=== PATIENT | female | born 1985 | race African-American/Black ===

== ENCOUNTER 2016-07-19 20:17 | Emergency (ER) | payer OTHER ==
[~2016-07-19] VITALS: Ht 160 cm; Wt 92.0 kg
[~2016-07-19 20:17] MED LIST: DOCU-119 PO; NOCURR; VICOT
[2016-07-19 20:40] VITALS: BP 132/86
[2016-07-19] MEDS: KETOROLAC TROMETHAMINE 60 MG/2 ML VIAL IM ONE (21:07)
[2016-07-19] MEDS: METHOCARBAMOL 500 MG TABLET PO ONE (21:07)
== END 2016-07-19 21:20 | disposition home or self-care (01) ==
LOC: EMS 20:19
DX: M62.838 Other muscle spasm (principal); F12.90 Cannabis use, unspecified, uncomplicated
CPT/HCPCS: 96372; 99283; J1885

== ENCOUNTER 2016-09-17 12:40 | Emergency (ER) | payer OTHER ==
[~2016-09-17] VITALS: Ht 160 cm; Wt 92.3 kg
[~2016-09-17 12:40] MED LIST changes: -DOCU-119 PO; -VICOT
[2016-09-17 14:06] VITALS: BP 120/70
== END 2016-09-17 14:08 | disposition home or self-care (01) ==
LOC: EMS 12:42
DX: J02.8 Acute pharyngitis due to other specified organisms (principal); B97.89 Other viral agents as the cause of diseases classified elsewhere; F17.210 Nicotine dependence, cigarettes, uncomplicated; F12.90 Cannabis use, unspecified, uncomplicated
CPT/HCPCS: 87430; 99283

== ENCOUNTER 2017-12-22 00:31 | Emergency (ER) | payer OTHER ==
[~2017-12-22] VITALS: Ht 160 cm; Wt 113.6 kg
[2017-12-22 05:40] VITALS: BP 105/64
== END 2017-12-22 06:02 | disposition home or self-care (01) ==
LOC: EMS 00:32
DX: R07.89 Other chest pain (principal); F17.210 Nicotine dependence, cigarettes, uncomplicated; F12.90 Cannabis use, unspecified, uncomplicated
CPT/HCPCS: 93005; 99406

== ENCOUNTER 2018-08-01 13:14 | Emergency (ER) | payer OTHER ==
[~2018-08-01] VITALS: Ht 160 cm; Wt 116.4 kg
[2018-08-01] MEDS ORDERED: METHOCARBAMOL 500 MG TABLET PO ONE (14:30)
[2018-08-01] MEDS ORDERED: LIDOCAINE 5% TRANSDERMAL PATCH TD ONE (14:30)
[2018-08-01 16:22] VITALS: BP 126/77
== END 2018-08-01 16:33 | disposition home or self-care (01) ==
LOC: EMS 13:15
DX: M54.6 Pain in thoracic spine (principal); F17.210 Nicotine dependence, cigarettes, uncomplicated; F12.90 Cannabis use, unspecified, uncomplicated
CPT/HCPCS: 72072

== ENCOUNTER 2018-10-08 12:40 | Emergency (ER) | payer OTHER ==
[~2018-10-08] VITALS: Ht 160 cm; Wt 120.5 kg
[2018-10-08 14:58] LABS: BASOPHILS % (AUTO) 0.9 % (0.0-2.0); EOSINOPHILS % (AUTO) 3.1 % (1.0-6.0); HEMATOCRIT 41.8 % (36-46); HEMOGLOBIN 13.3 g/dL (12.0-16.0); LYMPHOCYTES # (AUTO) 2.6 K/uL (1.0-4.8); LYMPHOCYTES % (AUTO) 29.9 % (22.0-44.0); MEAN CORPUSCULAR HEMOGLOBIN 28.1 pg (26.0-34.0); MEAN CORPUSCULAR HGB CONC 31.8 G/dL (31.0-37.0); MEAN CORPUSCULAR VOLUME 89 fL (80-100); MONOCYTES # (AUTO) 0.3 K/uL (0.1-1.0); MONOCYTES % (AUTO) 3.8 % (2.0-9.0); NEUTROPHILS # (AUTO) 5.3 K/uL (1.8-7.7); NEUTROPHILS % (AUTO) 62.3 % (40.0-70.0); PLATELET COUNT (AUTO) 271 K/uL (150-450); RED BLOOD CELL COUNT(AUTO) 4.72 MIL/uL (4.00-5.20); RED CELL DISTRIBUTION WIDTH 15.3 % (11.5-14.5)
[2018-10-08 15:03] LABS: APPEARANCE,URINE CLOUDY (CLEAR); BILIRUBIN,URINE NEGATIVE (NEGATIVE); GLUCOSE, URINE (UA) NEGATIVE (NEGATIVE); KETONES,URINE NEGATIVE (NEGATIVE); LEUKOCYTE ESTERASE ,URINE MODERATE (NEGATIVE); NITRATE,URINE NEGATIVE (NEGATIVE); OCCULT BLOOD,URINE MODERATE (NEGATIVE); PROTEIN,URINE NEGATIVE (NEGATIVE)
[2018-10-08 15:15] LABS: BACTERIA,URINE Few /HPF (None Seen); RBC,URINE 0-2 /HPF (0-2); SQUAMOUS EPITHELIAL CELL,UR Many /LPF (None Seen)
[2018-10-08 15:19] LABS: ANION GAP 11 mmol/L (8-16); CALCIUM, TOTAL 9.5 mg/dL (8.8-10.5); CARBON DIOXIDE 23 mmol/L (22-29); CHLORIDE 105 mmol/L (98-107); CREATININE 0.61 mg/dL (0.60-1.30); GLOMERULAR FILTR. RATE CALC > 60 mL/min (>60); GLUCOSE,RANDOM 101 mg/dL (70-110); POTASSIUM 3.7 mmol/L (3.5-5.1); SODIUM SERUM 139 mmol/L (136-145); UREA NITROGEN, BLOOD 15 mg/dL (7-18)
[2018-10-08 15:30] LABS: ALANINE AMINOTRANSFERASE 19 U/L (12-78); ALBUMIN 3.4 g/dL (3.4-5.0); ALKALINE PHOSPHATASE 83 U/L (46-116); ASPARTATE AMINOTRANSFERASE 14 U/L (15-37); BILIRUBIN,TOTAL 0.3 mg/dL (0.1-1.0); HCG,QUANTITATIVE < 1 mIU/mL (0-6); LIPASE 93 U/L (73-393)
[2018-10-08] MEDS ORDERED: CEPHALEXIN MONOHYDRATE 500 MG CAPSULE PO ONE (16:45)
[2018-10-08] MEDS ORDERED: MAG HYDROX/AL HYDROX/SIMETH 30 ML SUSP UDCUP PO ONE (16:45)
[2018-10-08] MEDS ORDERED: LIDOCAINE 2% VISCOUS 15 ML SOLUTION UDCUP PO ONE (16:45)
[2018-10-08] MEDS ORDERED: FAMOTIDINE 20 MG TABLET PO ONE (16:45)
[2018-10-08 18:21] VITALS: BP 129/74
== END 2018-10-08 19:18 | disposition home or self-care (01) ==
LOC: EMS 12:41
DX: R10.12 Left upper quadrant pain (principal); F17.210 Nicotine dependence, cigarettes, uncomplicated; F12.90 Cannabis use, unspecified, uncomplicated
CPT/HCPCS: 87086; 99406

== ENCOUNTER 2020-12-12 10:06 | Emergency (ER) | payer OTHER ==
[~2020-12-12] VITALS: Ht 157.5 cm; Wt 12.7 kg
[2020-12-12] MEDS ORDERED: BENZONATATE 100 MG CAPSULE PO ONE (10:45)
[2020-12-12 11:05] LABS: COVID AG,FIA SOURCE NASOPHARYNGEAL
[2020-12-12 12:41] VITALS: BP 132/74
== END 2020-12-12 12:42 | disposition home or self-care (01) ==
LOC: EMS 10:06
DX: J18.0 Bronchopneumonia, unspecified organism (principal); F17.210 Nicotine dependence, cigarettes, uncomplicated; F12.90 Cannabis use, unspecified, uncomplicated; Z20.822 Contact with and (suspected) exposure to COVID-19
CPT/HCPCS: 71045; 81025; 87426; 99284; U0003

== ENCOUNTER 2021-05-02 07:57 | Emergency (ER) | payer OTHER ==
[~2021-05-02] VITALS: Ht 160 cm; Wt 129.6 kg
[2021-05-02 08:33] VITALS: BP 105/70
[2021-05-02] MEDS ORDERED: KETOROLAC TROMETHAMINE 60 MG/2 ML VIAL IM ONE (08:45)
== END 2021-05-02 12:15 | disposition home or self-care (01) ==
LOC: EMS 07:57
DX: S90.31XA Contusion of right foot, initial encounter (principal); X58.XXXA Exposure to other specified factors, initial encounter; Y93.89 Activity, other specified; Y92.89 Other specified places as the place of occurrence of the external cause; Y99.8 Other external cause status
CPT/HCPCS: 73630; 96372; 99283; J1885

== ENCOUNTER 2021-11-01 07:33 | Emergency (ER) | payer OTHER ==
[~2021-11-01] VITALS: Ht 167.6 cm; Wt 90.9 kg
[2021-11-01 09:42] LABS: COVID AG,FIA SOURCE NASAL SWAB
[2021-11-01 10:19] LABS: INFLUENZA TYPE A NEGATIVE FOR TYPE A (NEGATIVE); INFLUENZA TYPE B NEGATIVE FOR TYPE B (NEGATIVE)
[2021-11-01 10:21] LABS: RAPID GROUP A STREP NEGATIVE (NEGATIVE)
[2021-11-01 11:00] VITALS: BP 113/72
[2021-11-01] MEDS ORDERED: DEXAMETHASONE 4 MG TABLET PO ONE (11:30)
[2021-11-01] MEDS ORDERED: OXYMETAZOLINE HCL 0.05% 15 ML NASAL SPRAY NASAL ONE (11:30)
== END 2021-11-01 12:31 | disposition home or self-care (01) ==
LOC: EMS 07:59
DX: J06.9 Acute upper respiratory infection, unspecified (principal); R05.9 Cough, unspecified; R09.81 Nasal congestion; J02.9 Acute pharyngitis, unspecified; Z20.822 Contact with and (suspected) exposure to COVID-19
CPT/HCPCS: 99283; 87426; 87430; 87804; J8540

== ENCOUNTER 2023-05-31 13:50 | Emergency (ER) | payer OTHER ==
[~2023-05-31] VITALS: Ht 157.5 cm; Wt 111.4 kg
[2023-05-31 13:54] VITALS: TEMP 98.2
[2023-05-31] MEDS ORDERED: FLUT12AE20 IH (13:55)
[2023-05-31] MEDS: LIDOCAINE 1% 10 ML VIAL SQ ONE (15:08)
[2023-05-31 15:27] VITALS: BP 118/72; PULSE 94; RESP 16
== END 2023-05-31 16:06 | disposition home or self-care (01) ==
LOC: EMS 13:57
DX: T81.31XA Disruption of external operation (surgical) wound, not elsewhere classified, initial encounter (principal); Z90.49 Acquired absence of other specified parts of digestive tract; Z90.710 Acquired absence of both cervix and uterus
CPT/HCPCS: 99282; 12002; J3490